=== PATIENT | male | born 1970 | race Caucasian/White ===

== ENCOUNTER 2019-09-10 13:00 | Day surgery (SDC) | payer OTHER ==
[~2019-09-10] VITALS: Ht 162.6 cm; Wt 72.0 kg
[~2019-09-10 13:00] MED LIST: SODIUM CHLORIDE 0.9% 1,000 ML ONE
[2019-09-10] MEDS ORDERED: SODIUM CHLORIDE 0.9% 1,000 ML IV ONE (13:30)
[2019-09-10] MEDS ORDERED: FURO40 PO (13:39)
[2019-09-10] MEDS ORDERED: PROP20TA7 PO (13:39)
[2019-09-10] MEDS ORDERED: METF-960 PO (13:39)
[2019-09-10] MEDS ORDERED: LISI-662 PO (13:39)
[2019-09-10 14:02] LABS: GLUCOMETER DEV NAME(LOC) SDS.; GLUCOSE,POINT OF CARE 75 MG/DL (70-110)
== END 2019-09-10 17:45 | disposition home or self-care (01) ==
LOC: SURGERY 13:00
PROVIDERS: ATTEND Internal Medicine Gastroenterology
DX: I85.00 Esophageal varices without bleeding (principal); K70.30 Alcoholic cirrhosis of liver without ascites; K76.6 Portal hypertension; K31.89 Other diseases of stomach and duodenum; K29.70 Gastritis, unspecified, without bleeding; F17.210 Nicotine dependence, cigarettes, uncomplicated; F10.20 Alcohol dependence, uncomplicated; D64.9 Anemia, unspecified; I10 Essential (primary) hypertension; E11.9 Type 2 diabetes mellitus without complications; Z98.890 Other specified postprocedural states; Z86.19 Personal history of other infectious and parasitic diseases
CPT/HCPCS: 43244; 82962; J7030